=== PATIENT | male | born 1995 | race Hispanic/Latino ===

== ENCOUNTER 2023-06-05 16:05 | Inpatient (IN) | payer SELFPAY ==
[2023-06-05] MEDS ORDERED: ASPIRIN 81 MG CHEWABLE TABLET ONE (16:54)
[2023-06-05] MEDS ORDERED: NA CHLORIDE 0.9% 1,000 ML ONE ×2 (16:54→21:46)
[2023-06-05] MEDS ORDERED: LABETALOL HCL 100 MG TAB ONE (17:06)
[2023-06-05] MEDS ORDERED: DIGOXIN 0.25 MG/ML AMP ONE (17:06)
[2023-06-05] MEDS ORDERED: ENOXAPARIN 80 MG/0.8 ML SQ ONE (17:06)
[2023-06-05] MEDS ORDERED: LABETALOL 20 MG/4ML SYRINGE IV ONE ×2 (17:07→17:39)
[2023-06-05] MEDS ORDERED: MAGNESIUM SULFATE 1 gm IVPB 1 GM/100 ML BAG IV ONE (17:07)
[2023-06-05 17:09] LABS: Absolute Lymphocytes (CBC) 2.9 K/uL (0.7-4.9); Hematocrit 44.8 % (39.6-49.0); Lymphocytes % 29.8 % (15.3-44.8); MCV 92.5 fL (80-100); Platelets 225 thou/uL (152-406); RBC Red Blood Cell Count 4.84 M/uL (4.33-5.43)
--- NOTE | 2023-06-05 17:12 | EDPHYS ---
Physician Documentation [facility] Name: Garcia Marcelino Age: 27 yrs Sex: Male : 1995 Arrival Date: 06/05/2023 Time: 16:05 Bed 13 Private MD: ED Physician Dougie Valadez HPI: 06/05 17:04 This 27 yrs old Male presents to ER via Ambulatory with complaints of Chest anand Pressure, Palpitations, sent from urgent care heart attack?. 17:04 The patient or guardian reports chest pain that is located primarily in the substernal anand area, anterior chest wall, bilaterally. The pain does not radiate. Associated signs and symptoms: The patient has no apparent associated signs or symptoms. The chest pain is described as a pressure. Duration: The patient or guardian reports multiple episodes, with no pattern. Modifying factors: The symptoms are alleviated by nothing. the symptoms are aggravated by nothing. Severity of pain: At its worst the pain was mild in the emergency department the pain is unchanged. Historical: - Allergies: 16:40 No Known Allergies; aa5 - Home Meds: 16:40 Omeprazole Oral [Active]; aa5 - PMHx: 16:40 None; aa5 - PSHx: 16:40 None; aa5 - Immunization history:: Adult Immunizations unknown. - Social history:: Smoking status: Reported history of juuling and/or vaping. - Family history:: not pertinent. ROS: 17:04 Constitutional: Negative for fever, chills, and weight loss, Eyes: Negative for injury, anand pain, redness, and discharge, ENT: Negative for injury, pain, and discharge, Neck: Negative for injury, pain, and swelling, Respiratory: Negative for shortness of breath, cough, wheezing, and pleuritic chest pain, Abdomen/GI: Negative for abdominal pain, nausea, vomiting, diarrhea, and constipation, Back: Negative for injury and pain, : Negative for injury, bleeding, discharge, and swelling, MS/Extremity: Negative for injury and deformity, Skin: Negative for injury, rash, and discoloration, Neuro: Negative for headache, weakness, numbness, tingling, and seizure, Psych: Negative for depression, anxiety, suicide ideation, homicidal ideation, and hallucinations, Allergy/Immunology: Negative for hives, rash, and allergies, Endocrine: Negative for neck swelling, polydipsia, polyuria, polyphagia, and marked weight changes, Hematologic/Lymphatic: Negative for swollen nodes, abnormal bleeding, and unusual bruising, 17:04 Cardiovascular: Positive for chest pain, palpitations, Exam: 17:04 Constitutional: This is a well developed, well nourished patient who is awake, alert, anand and in no acute distress. Head/Face: Normocephalic, atraumatic. Eyes: Pupils equal round and reactive to light, extra-ocular motions intact. Lids and lashes normal. Conjunctiva and sclera are non-icteric and not injected. Cornea within normal limits. Periorbital areas with no swelling, redness, or edema. ENT: Nares patent. No nasal discharge, no septal abnormalities noted. Tympanic membranes are normal and external auditory canals are clear. Oropharynx with no redness, swelling, or masses, exudates, or evidence of obstruction, uvula midline. Mucous membranes moist. Neck: Trachea midline, no thyromegaly or masses palpated, and no cervical lymphadenopathy. Supple, full range of motion without nuchal rigidity, or vertebral point tenderness. No Meningismus. Chest/axilla: Normal chest wall appearance and motion. Nontender with no deformity. No lesions are appreciated. Respiratory: Lungs have equal breath sounds bilaterally, clear to auscultation and percussion. No rales, rhonchi or wheezes noted. No increased work of breathing, no retractions or nasal flaring. Abdomen/GI: Soft, non-tender, with normal bowel sounds. No distension or tympany. No guarding or rebound. No evidence of tenderness throughout. Back: No spinal tenderness. No costovertebral tenderness. Full range of motion. Male : Normal genitalia with no discharge or lesions. Skin: Warm, dry with normal turgor. Normal color with no rashes, no lesions, and no evidence of cellulitis. MS/ Extremity: Pulses equal, no cyanosis. Neurovascular intact. Full, normal range of motion. Neuro: Awake and alert, GCS 15, oriented to person, place, time, and situation. Cranial nerves II-XII grossly intact. Motor strength 5/5 in all extremities. Sensory grossly intact. Cerebellar exam normal. Normal gait. Psych: Awake, alert, with orientation to person, place and time. Behavior, mood, and affect are within normal limits. 17:04 Cardiovascular: Rate: tachycardic, actual rate is 155 bpm, Rhythm: irregularly irregular, Pulses: Pulses are 4+ in bilateral radial, brachial, femoral, popliteal, posterior tibial and and dorsalis pedis arteries.. Heart sounds: normal, Edema: is not appreciated, JVD: is not appreciated, 17:04 ECG was reviewed by the Attending Physician. Vital Signs: 16:38 BP 112 / 97; Pulse 90; Resp 16 S; Temp 98(TE); Pulse Ox 100% on R/A; Weight 82.1 kg aa5 (R); Height 5 ft. 11 in. (R); 16:40 Pulse 125; aa5 16:45 Pulse 170; aa5 16:59 BP 143 / 84; Pulse 155; Resp 18; Pulse Ox 96% on R/A; Pain 0/10; ld1 17:27 BP 122 / 89; Pulse 135; Resp 26; Pulse Ox 97% on R/A; ld1 17:43 BP 114 / 95; Pulse 132; Resp 20; Pulse Ox 97% on R/A; ld1 18:07 BP 101 / 88; Pulse 130; Resp 18; Pulse Ox 96% on R/A; ld1 18:35 BP 123 / 82; Pulse 97; Resp 20; Pulse Ox 99% on R/A; ld1 06/06 17:21 BP 119 / 84; Pulse 82; Resp 15; Pulse Ox 96% on R/A; me1 06/05 16:38 Body Mass Index 25.24 (82.10 kg, 180.34 cm) aa5 16:59 Pain Scale: Adult ld1 06/05 16:45 HR fluctuating between 150- 170bpm at this time, MD aware. aa5 MDM: 16:12 Patient medically screened. anand 17:07 Differential diagnosis: abnormal EKG, acute pericarditis, anxiety, coronary artery anand disease chest wall pain, gastritis, mitral valve prolapse, pancreatitis, pericarditis, pulmonary embolus, stable angina, thoracic aortic disection, unstable angina. HEART Score: ECG: Non specific repolarization disturbance / LBTB / PM (1), Age: < or = 45 years (0), Risk Factors: No Risk Factors Known (0), Troponin: < or = 1 x Normal Limit (0). TERRY Risk Score: TOTAL SCORE = 0. Data reviewed: vital signs, nurses notes, EMS record, lab test result(s), EKG, radiologic studies. Consideration of Admission/Observation Patient was admitted/placed on observation. Escalation of care including admission/observation considered. I considered the following discharge prescriptions or medication management in the emergency department Medications were administered in the Emergency Department. See MAR. Test considered but Not performed: Ultrasound NO 2 D ECHO IN ED. Historians other than the Patient: Spouse/Significant Other: SIGN OTHER. Care significantly affected by the following chronic conditions: NONE, COCAINE USE. Counseling: I had a detailed discussion with the patient and/or guardian regarding the historical points, exam findings, and any diagnostic results supporting the discharge/admit diagnosis, the presence of at least one elevated blood pressure reading (>120/80) during this emergency department visit, lab results, radiology results, the need for further work-up and treatment in the hospital. 06/05 16:13 Order name: Basic Metabolic Panel; Complete Time: 18:02 anand 06/05 16:13 Order name: CBC with Diff; Complete Time: 17:32 anand 06/05 16:13 Order name: LFT's; Complete Time: 18:02 anand 06/05 16:13 Order name: Magnesium; Complete Time: 18:02 anand 06/05 16:13 Order name: NT PRO-BNP; Complete Time: 18:02 anand 06/05 16:13 Order name: PT-INR; Complete Time: 17:32 anand 06/05 16:13 Order name: Troponin HS; Complete Time: 18:02 anand 06/05 16:13 Order name: UDS; Complete Time: 19:34 anand 06/05 16:13 Order name: Lipase; Complete Time: 18:02 anand 06/05 16:47 Order name: TSH; Complete Time: 18:02 anand 06/05 18:35 Order name: CBC with Automated Diff EDMS 06/05 18:35 Order name: CBC with Automated Diff EDMS 06/05 18:35 Order name: Comprehensive Metabolic Panel EDMS 06/05 18:35 Order name: Comprehensive Metabolic Panel EDMS 06/05 18:35 Order name: Troponin High Sensitivity EDMS 06/05 18:35 Order name: Troponin High Sensitivity EDMS 06/05 18:35 Order name: Troponin High Sensitivity EDMS 06/05 18:35 Order name: Troponin High Sensitivity EDMS 06/06 05:24 Order name: Lipid Profile [facility] 06/06 05:36 Order name: LDL, Direct EDRI 06/06 05:50 Order name: Hemoglobin A1c [facility] 06/05 16:13 Order name: XRAY Chest (1 view); Complete Time: 18:02 [facility] 06/05 16:13 Order name: EKG; Complete Time: 16:13 [facility] 06/05 18:35 Order name: EKG Electrocardiogram [facility] 06/05 18:35 Order name: EKG Electrocardiogram [facility] 06/05 16:13 Order name: Cardiac monitoring; Complete Time: 16:52 [facility] 06/05 16:13 Order name: EKG - Nurse/Tech; Complete Time: 16:52 [facility] 06/05 16:13 Order name: IV Saline Lock; Complete Time: 16:52 [facility] 06/05 16:13 Order name: Labs collected and sent; Complete Time: 16:52 [facility] 06/05 16:13 Order name: O2 Per Protocol; Complete Time: 16:52 [facility] 06/05 16:13 Order name: O2 Sat Monitoring; Complete Time: 16:52 [facility] EC:04 Rate is 156 beats/min. Rhythm is irregularly irregular. QRS [place] is Normal. RI interval anand is normal. QRS interval is normal. QT interval is normal. No Q waves. T waves are Normal. No ST changes noted. Clinical impression: Atrial Fibrillation. Interpreted by me. Reviewed by me. Administered Medications: 16:59 Drug: Aspirin PO Chewable Tablet 162 mg PO once Route: PO; 1 06/06 07:00 Follow up: Response: No adverse reaction [facility] 06/05 16:59 Drug: NS 0.9% IV 500 ml IV at bolus once Route: IV; Rate: bolus; Site: right ld1 antecubital; 06/06 07:01 Follow up: Response: No adverse reaction; IV Status: Completed infusion; IV Intake: jw7 500ml 06/05 16:59 Drug: NS 0.9% IV 500 ml IV at bolus once Route: IV; Rate: bolus; Site: right ld1 antecubital; 06/06 07:01 Follow up: Response: No adverse reaction; IV Status: Completed infusion; IV Intake: jw7 500ml 06/05 17:10 Drug: Enoxaparin Sub-Q 1 mg/kg Sub-Q once Route: Sub-Q; Site: abdomen; 06/06 07:01 Follow up: Response: No adverse reaction [facility] 06/05 17:10 Drug: Labetalol PO 100 mg PO once Route: PO; 06/06 07:02 Follow up: Response: No adverse reaction 06/05 17:20 Drug: Digoxin IVP 0.5 mg IVP once Route: IVP; Site: right antecubital; 06/06 07:02 Follow up: Response: No adverse reaction [facility] 06/05 17:24 Drug: Labetalol IV 10 mg IV at per protocol once Route: IV; Rate: per protocol; Site: [facility] right antecubital; 06/06 07:02 Follow up: Response: No adverse reaction; IV Status: Completed infusion; IV Intake: [id number] 06/05 17:26 Drug: Magnesium Sulfate IVPB 1 grams IVPB once over 1 hrs Route: IVPB; Infused Over: 1 ld1 hrs; Site: right antecubital; 06/06 07:02 Follow up: Response: No adverse reaction; IV Status: Completed infusion; IV Intake: [id number] 06/05 17:43 Drug: Labetalol IV 10 mg IV at per protocol once Route: IV; Rate: per protocol; Site: [facility] right antecubital; 06/06 07:03 Follow up: Response: No adverse reaction; Marked relief of symptoms; IV Status: jw7 Completed infusion; IV Intake: 10ml 06/05 18:07 Drug: Labetalol IV 10 mg IV at per protocol once Route: IV; Rate: per protocol; Site: [facility] left antecubital; 06/06 07:03 Follow up: Response: No adverse reaction; Marked relief of symptoms; IV Status: jw7 Completed infusion; IV Intake: 10ml Disposition Summary: 06/05/23 17:11 Hospitalization Ordered Notes: Hospitalization Status: Observation anand Provider: Alexandria Gold cha Condition: Fair anand Problem: new anand Symptoms: have improved anand Bed/Room Type: Standard anand Location: [facility] ER HOLD(06/06/23 13:55) em1 Room Assignment: ERHOLD-(06/06/23 13:55) em1 Diagnosis - Persistent atrial fibrillation - WITH RVR, NEW ONSET anand - Cocaine abuse anand Forms: - Medication Reconciliation Form anand - SBAR form anand - Leadership Thank You Letter anand Signatures: Dispatcher [employer] Dougie Chun MD MD cha Trace, Gumaro em1 Val Hughes, RN RN aa5 Christiane Painting, JESICA RN Sonali Sneed RN RN ld1 Lupis Joseph rv1 Alicia Cho RN jw7 Corrections: (The following items were deleted from the chart) 06/05 16:41 16:40 Home Meds: None; aa5 aa5 19:20 17:11 Telemetry/MedSurg (observation) anand rv1 19:20 17:11 anand rv1 20:53 19:20 Telemetry/MedSurg (observation) rv1 cg 20:53 19:20 rv1 cg 06/06 12:17 06/05 20:53 [facility] ER HOLD cg em1 06/06 12:17 06/05 20:53 ERHOLD- cg em1 06/06 13:55 12:17 Telemetry/MedSurg (Inpatient) em1 em1 13:55 12:17 219 em1 em1
--- NOTE | 2023-06-05 17:12 | ER ---
Nurse's Notes [facility] Name: Garcia Marcelino Age: 27 yrs Sex: Male : 1995 Arrival Date: 06/05/2023 Time: 16:05 Bed 13 Private MD: Diagnosis: Persistent atrial fibrillation-WITH RVR, NEW ONSET;Cocaine abuse Presentation: 06/05 16:38 Chief complaint: Patient states: "I went to urgent care and they sent me here because aa5 my heart rate was 165". Pt states "I just felt palpitations and I did drink a lot last night". Coronavirus screen: At this time, the client does not indicate any symptoms associated with coronavirus-19. Ebola Screen: Patient denies travel to an Ebola-affected area in the 21 days before illness onset. Initial Sepsis Screen: Does the patient meet any 2 criteria? No. Patient's initial sepsis screen is negative. Does the patient have a suspected source of infection? No. Patient's initial sepsis screen is negative. Risk Assessment: Do you want to hurt yourself or someone else? Patient reports no desire to harm self or others. Onset of symptoms was June 05, 2023. 16:38 Method Of Arrival: Ambulatory aa5 16:38 Acuity: ANGELA 2 aa5 Historical: - Allergies: 16:40 No Known Allergies; aa5 - Home Meds: 16:40 Omeprazole Oral [Active]; aa5 - PMHx: 16:40 None; aa5 - PSHx: 16:40 None; aa5 - Immunization history:: Adult Immunizations unknown. - Social history:: Smoking status: Reported history of juuling and/or vaping. - Family history:: not pertinent. Screenin:59 [facility] ED Fall Risk Assessment (Adult) History of falling in the last 3 months, ld1 including since admission No falls in past 3 months (0 pts). Abuse screen: Denies threats or abuse. Denies injuries from another. Nutritional screening: No deficits noted. Tuberculosis screening: No symptoms or risk factors identified. Assessment: 16:59 General: Appears in no apparent distress. comfortable, Behavior is cooperative, ld1 anxious. Pain: Denies pain. Neuro: Level of Consciousness is awake, alert, obeys commands, Oriented to person, place, time, situation. Cardiovascular: Capillary refill < 3 seconds Patient's skin is warm and dry. Rhythm is atrial fibrillation with rapid ventricular response. Respiratory: Airway is patent Respiratory effort is even, unlabored. GI: Abdomen is flat, non-distended. : No signs and/or symptoms were reported regarding the genitourinary system. EENT: No signs and/or symptoms were reported regarding the EENT system. Derm: No signs and/or symptoms reported regarding the dermatologic system. Musculoskeletal: No signs and/or symptoms reported regarding the musculoskeletal system. 17:00 Reassessment: Pt reports use of cocaine two nights ago and drinking two energy drinks. ld1 Denies chest pain. Chest "feels like heart is beating fast.". Vital Signs: 16:38 BP 112 / 97; Pulse 90; Resp 16 S; Temp 98(TE); Pulse Ox 100% on R/A; Weight 82.1 kg aa5 (R); Height 5 ft. 11 in. (R); 16:40 Pulse 125; aa5 16:45 Pulse 170; aa5 16:59 BP 143 / 84; Pulse 155; Resp 18; Pulse Ox 96% on R/A; Pain 0/10; ld1 17:27 BP 122 / 89; Pulse 135; Resp 26; Pulse Ox 97% on R/A; ld1 17:43 BP 114 / 95; Pulse 132; Resp 20; Pulse Ox 97% on R/A; ld1 18:07 BP 101 / 88; Pulse 130; Resp 18; Pulse Ox 96% on R/A; ld1 18:35 BP 123 / 82; Pulse 97; Resp 20; Pulse Ox 99% on R/A; ld1 06/06 17:21 BP 119 / 84; Pulse 82; Resp 15; Pulse Ox 96% on R/A; me1 06/05 16:38 Body Mass Index 25.24 (82.10 kg, 180.34 cm) aa5 16:59 Pain Scale: Adult ld1 06/05 16:45 HR fluctuating between 150- 170bpm at this time, aware. aa5 ED Course: 16:07 Patient arrived in ED. im 16:12 Dougie Valadez MD is Attending Physician. anand 16:36 XRAY Chest (1 view) In Process Unspecified. EDMS 16:37 Arm band placed on. aa5 16:39 Triage completed. aa5 16:46 Patient placed in an exam room, on a stretcher. aa5 16:52 Sonali Sneed RN is Primary Nurse. ld1 16:59 Patient has correct armband on for positive identification. Placed in gown. Bed in low ld1 position. Call light in reach. Side rails up X2. property assessment monitor on. Pulse ox on. NIBP on. Door closed. Noise minimized. Warm blanket given. 16:59 Inserted saline lock: 18 gauge in right antecubital area, using aseptic technique. ld1 Blood collected. 16:59 No provider procedures requiring assistance completed. Patient maintains SpO2 ld1 saturation greater than 95% on room air. 17:10 Alexandria Gold MD is Hospitalizing Provider. [facility] 06/06 01:49 Provided Education on: need for admit. 01:49 Patient admitted, IV remains in place. 17:22 IV discontinued, intact, bleeding controlled, No redness/swelling at site. Pressure me1 dressing applied. Administered Medications: 06/05 16:59 Drug: Aspirin PO Chewable Tablet 162 mg PO once Route: PO; 06/06 07:00 Follow up: Response: No adverse reaction [facility] 06/05 16:59 Drug: NS 0.9% IV 500 ml IV at bolus once Route: IV; Rate: bolus; Site: right ld1 antecubital; 06/06 07:01 Follow up: Response: No adverse reaction; IV Status: Completed infusion; IV Intake: jw7 500ml 06/05 16:59 Drug: NS 0.9% IV 500 ml IV at bolus once Route: IV; Rate: bolus; Site: right ld1 antecubital; 06/06 07:01 Follow up: Response: No adverse reaction; IV Status: Completed infusion; IV Intake: jw7 500ml 06/05 17:10 Drug: Enoxaparin Sub-Q 1 mg/kg Sub-Q once Route: Sub-Q; Site: abdomen; 06/06 07:01 Follow up: Response: No adverse reaction [facility] 06/05 17:10 Drug: Labetalol PO 100 mg PO once Route: PO; 06/06 07:02 Follow up: Response: No adverse reaction [facility] 06/05 17:20 Drug: Digoxin IVP 0.5 mg IVP once Route: IVP; Site: right antecubital; 1 06/06 07:02 Follow up: Response: No adverse reaction jw7 06/05 17:24 Drug: Labetalol IV 10 mg IV at per protocol once Route: IV; Rate: per protocol; [facility]; 06/06 07:02 Follow up: Response: No adverse reaction; IV Status: Completed infusion; IV Intake: [id number] 06/05 17:26 Drug: Magnesium Sulfate IVPB 1 grams IVPB once over 1 hrs Route: IVPB; Infused Over: 1 ld1 hrs; [facility]; 06/06 07:02 Follow up: Response: No adverse reaction; IV Status: Completed infusion; IV Intake: [id number] 06/05 17:43 Drug: Labetalol IV 10 mg IV at per protocol once Route: IV; Rate: per protocol; Site: [facility] right [facility]; 06/06 07:03 Follow up: Response: No adverse reaction; Marked relief of symptoms; IV Status: jw7 Completed infusion; IV Intake: 10ml 06/05 18:07 Drug: Labetalol IV 10 mg IV at per protocol once Route: IV; Rate: per protocol; Site: [facility] left [facility]; 06/06 07:03 Follow up: Response: No adverse reaction; Marked relief of symptoms; IV Status: jw7 Completed infusion; IV Intake: 10ml Medication: 01:50 VIS not applicable for this client. jw7 Intake: 07:01 IV: 500ml; Total: 500ml. jw7 07:01 IV: 500ml; Total: 1000ml. jw7 07:02 IV: 10ml; Total: 1010ml. jw7 07:02 IV: 50ml; Total: 1060ml. jw7 07:03 IV: 10ml; Total: 1070ml. jw7 07:03 IV: 10ml; Total: 1080ml. jw7 Outcome: 06/05 17:11 Decision to Hospitalize by Provider. [facility] 06/06 01:49 Admitted to ER Hold. Please see [facility] for further documentation. jw7 Condition: stable Instructed on the need for admit, Demonstrated understanding of instructions, 17:22 Patient left the ED. me1 Signatures: Dispatcher [employer] EDDougie Benavides MD MD cha Calderon, Audri, RN RN aa5 Sonali Sneed RN RN ld1 Alicia Cho, JESICA RN jw7 Mady Shepherd Michelle RN RN me1 Corrections: (The following items were deleted from the chart) 06/05 16:40 16:38 BP 112 / 97; Pulse 90bpm; Resp 16bpm; Spontaneous; Pulse Ox 100% RA; aa5 aa5 16:41 16:40 Home Meds: None; aa5 aa5 16:50 16:38 Acuity: ANGELA 3 aa5 aa5
[2023-06-05 17:17] LABS: Protime INR 1.22
[2023-06-05 17:36] LABS: Albumin 4.4 g/dL (3.4-5.0); Bilirubin Direct 0.1 mg/dL (0-0.2); Bilirubin Indirect, Calculated 0.4 mg/dL (0.2-0.8); Bilirubin Total 0.5 mg/dL (0.2-1.0); Magnesium 1.8 mg/dL (1.6-2.4); Potassium 3.8 mEq/L (3.5-5.1); Protein, Total 8.4 g/dL (6.4-8.2); Troponin High Sensitivity 12.3 pg/mL (<58.9)
--- NOTE | 2023-06-05 17:44 | RAD REPORT ---
EXAM DESCRIPTION: Steve Single View06/05/2023 4:34 pm CLINICAL HISTORY: Chest pain COMPARISON: none FINDINGS: The lungs appear clear of acute infiltrate. The heart is normal size IMPRESSION: No acute abnormalities displayed
--- NOTE | 2023-06-05 18:29 | P.HP ---
Certification for Inpatient Patient admitted to: Inpatient With expected LOS: >2 Midnights Practitioner: I am a practitioner with admitting privileges, knowledge of patient current condition, hospital course, and medical plan of care. Services: Services provided to patient in accordance with Admission requirements found in Title 42 Section 412.3 of the Code of Federal Regulations Patient History Date of Service: 06/05/23 Reason for admission: Afib W RVR History of Present Illness: 27 yrs old Male with no significant past medical history brought to ER with chest discomfort and palpitation. Patient was having substernal chest pain associated with palpitation started 3 to 4 days ago and has been progressively worsening associated with mild shortness of breath pain is located anterior chest wall on both sides with no radiation. Not associated with diaphoresis. No nausea vomiting or diarrhea. No fever or chills. No sick contacts. Patient admits that he has been drinking heavily daily for the last 3 to 4 days and has used cocaine 1 time 2 days ago and has been eating spicy foods and energy drinks. No previous history of atrial fibrillation. At the time of interview pain is better and resolved Patient was assessed in the ER and was admitted for further management of chest pain and palpitations to rule out atrial fibrillation w RVR Home medications list reviewed: Yes - Past Medical/Surgical History Past Medical History: Reviewed- Non-Contributory Past Surgical History: Reviewed- Non-Contributory - Family History Family History: Reviewed- Non-Contributory - Social History Smoking Status: Current every day smoker Review of Systems 10-point ROS is otherwise unremarkable General: Unremarkable Eyes: Unremarkable ENT: Unremarkable Respiratory: Shortness of Breath, SOB with Excertion Cardiovascular: Chest Pain, Palpitations Gastrointestinal: Unremarkable Genitourinary: Unremarkable Musculoskeletal: Unremarkable Integumentary: Unremarkable Lymphatics: Unremarkable Physical Examination - Vital Signs Temperature: 98.6 F Blood Pressure: 128/72 Pulse: 96 Respirations: 18 Pulse Ox (%): 98 - Physical Exam General: Alert, In no apparent distress, Oriented x3 HEENT: Atraumatic, Normocephalic Neck: Supple, 2+ carotid pulse no bruit Respiratory: Clear to auscultation bilaterally, Normal air movement Cardiovascular: Normal pulses, Regular rate/rhythm, Normal S1 S2 Capillary refill: <2 Seconds Gastrointestinal: Soft and benign, W/out hepatosplenomegaly Musculoskeletal: No clubbing, No swelling Integumentary: No rashes, No breakdown Neurological: Normal speech, Normal strength at 5/5 x4 extr, Normal tone, Sensation intact, Cranial nerves 3-12 intact, Normal reflexes 2+, Normal affect Lymphatics: No axilla or inguinal lymphadenopathy - Studies Laboratory Data (last 24 hrs) 06/05/23 06/05/23 06/05/23 16:56 16:56 16:56 WBC 9.70 Hgb 15.7 Hct 44.8 Plt Count 225 PT 13.3 H INR 1.22 Sodium 137 Potassium 3.8 BUN 16 Creatinine 1.18 Glucose 90 Magnesium 1.8 Total Bilirubin 0.5 AST 22 ALT 58 Alkaline Phosphatase 84 Lipase 36 Assessment and Plan - Problems (Diagnosis) (1) Atrial fibrillation with RVR Current Visit: Yes Status: Acute Plan: Patient initially presented with A-fib with RVR Had labetolol in the ER Right now converted to sinus rhythm Monitor closely under telemetry We will get an echocardiogram Continue beta-cosme We will start on aspirin Cardiology consult if patient develop A-fib again (2) Chest pain Current Visit: Yes Status: Acute Plan: Chest pain rule out ACS Trend cardiac enzymes Aspirin and statin Will get an A1c and lipid panel Will get an echocardiogram At the time of interview patient is chest pain-free (3) Substance abuse Current Visit: Yes Status: Acute Plan: Patient admits he has been drinking alcohol heavily in the last 3 to 4 days Advised alcohol cessation Offered measures Patient also admitting to drinking energy drinks and using cocaine Advised to refrain from those - Advance Directives Does patient have a Living Will: No Does patient have a Durable POA for Healthcare: No - Code Status/Comfort Care Code Status: Full Code Time Spent Managing Pts Care (In Minutes): 48
[2023-06-05] MEDS ORDERED: ONDANSETRON 4 MG/2 ML VIAL IV PRN (18:30)
[2023-06-05] MEDS ORDERED: ACETAMINOPHEN 500 MG TAB PO PRN (18:30)
[2023-06-05] MEDS ORDERED: MORPHINE 2 MG/ML SYR IV PRN (18:30)
[2023-06-05 18:56] LABS: Barbiturates NEGATIVE (NEGATIVE); Benzodiazepines NEGATIVE (NEGATIVE); Cocaine NEGATIVE (NEGATIVE); METHAMPHETAM NEGATIVE (NEGATIVE); Methadone NEGATIVE (NEGATIVE); Opiates NEGATIVE (NEGATIVE); Phencyclidine NEGATIVE (NEGATIVE); THC Cannibis NEGATIVE (NEGATIVE)
[2023-06-05] MEDS ORDERED: NA CHLORIDE 0.9% 1,000 ML IV SCH (19:00)
[2023-06-05] MEDS ORDERED: ATORVASTATIN 40 MG TAB PO SCH (21:00)
[2023-06-05] MEDS ORDERED: METOPROLOL TAR 25 MG TAB ONE (21:46)
[2023-06-05] MEDS ORDERED: ATORVASTATIN 40 MG TAB ONE (21:46)
[2023-06-05] MEDS: METOPROLOL TAR 25 MG TAB PO SCH (22:00)
[2023-06-06 01:46] VITALS: BMI 25.1
[2023-06-06 04:43] LABS: Absolute Lymphocytes (CBC) 2.8 K/uL (0.7-4.9); Hematocrit 39.5 % (39.6-49.0); Lymphocytes % 38.3 % (15.3-44.8); MCV 92.6 fL (80-100); MPV 10.6 fL (7.6-11.3); Platelets 182 thou/uL (152-406); RBC Red Blood Cell Count 4.27 M/uL (4.33-5.43)
[2023-06-06 05:20] LABS: ALT/SGPT 59 U/L (16-61); Albumin 3.7 g/dL (3.4-5.0); Alkaline Phosphatase 80 U/L (45-117); BUN Blood Urea Nitrogen 19 mg/dL (7-18); Bicarbonate 25 mEq/L (21-32); Bilirubin Total 0.6 mg/dL (0.2-1.0); Glomerular Filtration Rate 84 ml/min (=/>90); Glucose Level 113 mg/dL (74-106); HDL Cholesterol 27 mg/dL (40-60); Protein, Total 7.3 g/dL (6.4-8.2); Sodium Level 134 mEq/L (136-145)
[2023-06-06 05:23] LABS: AST/SGOT 24 U/L (15-37); Potassium 3.4 mEq/L (3.5-5.1)
[2023-06-06 05:36] LABS: LDL, Direct 86 mg/dL (100-129)
[2023-06-06] MEDS: METOPROLOL TAR 25 MG TAB PO SCH (06:00)
[2023-06-06] MEDS: POTASSIUM CL SA 10 MEQ TAB PO SCH ×2 (08:00→12:00)
[2023-06-06] MEDS ORDERED: POTASSIUM CL SA 10 MEQ TAB PO ONE ×2 (08:10→16:15)
[2023-06-06] MEDS ORDERED: METOPROLOL TAR 25 MG TAB ONE (08:10)
[2023-06-06] MEDS ORDERED: ASPIRIN 81 MG CHEWABLE TABLET ONE (08:10)
[2023-06-06] MEDS ORDERED: ASPIRIN EC 81 MG TAB PO SCH (09:00)
--- NOTE | 2023-06-06 14:16 | P.DS ---
Admission Date: 06/05/23 Discharge Date: 06/06/23 Disposition: ROUTINE DISCHARGE Discharge Condition: GOOD Reason for Admission: Afib W RVR Brief History of Present Illness: 27 yrs old Male with no significant past medical history brought to ER with chest discomfort and palpitation. Patient was having substernal chest pain associated with palpitation started 3 to 4 days ago and has been progressively worsening associated with mild shortness of breath pain is located anterior chest wall on both sides with no radiation. Not associated with diaphoresis. No nausea vomiting or diarrhea. No fever or chills. No sick contacts. Patient admits that he has been drinking heavily daily for the last 3 to 4 days and has used cocaine 1 time 2 days ago and has been eating spicy foods and energy drinks. No previous history of atrial fibrillation. At the time of interview pain is better and resolved Patient was assessed in the ER and was admitted for further management of chest pain and palpitations to rule out atrial fibrillation w RVR Hospital Course: Pt presented in the ER with A. fib with RVR. He reported drinking alcohol and using cocaine with energy drink 2 days before this admission. We admitted him for A. fib with RVR. Heart rate improved with metoprolol that was started in the ER. We later switched him to coreg 6.25mg po BID. Lipid panel showed elevated triglyceride (1200) and we started fenofibrate. His symptoms resolved and pt requested to leave. We advised him to stop using cocaine and follow up with Dr. Ortega. He was in NAD prior to discharge Vital Signs/Physical Exam: Temp Pulse Resp BP Pulse Ox 98.0 F 95 H 16 117/76 98 06/06/23 07:55 06/06/23 07:55 06/06/23 07:55 06/06/23 07:55 06/06/23 07:55 Laboratory Data at Discharge: WBC 7.40 thou/uL (4.3-10.9) 06/06/23 04:05 Hgb 14.1 g/dL (13.6-17.9) D 06/06/23 04:05 Hct 39.5 % (39.6-49.0) L 06/06/23 04:05 Plt Count 182 thou/uL (152-406) 06/06/23 04:05 PT 13.3 SECONDS (9.5-12.5) H 06/05/23 16:56 INR 1.22 06/05/23 16:56 Sodium 134 mEq/L (136-145) L 06/06/23 04:05 Potassium 3.4 mEq/L (3.5-5.1) L 06/06/23 04:05 BUN 19 mg/dL (7-18) H 06/06/23 04:05 Creatinine 1.21 mg/dL (0.70-1.30) 06/06/23 04:05 Glucose 113 mg/dL (74-106) H 06/06/23 04:05 Magnesium 1.8 mg/dL (1.6-2.4) 06/05/23 16:56 Total Bilirubin 0.6 mg/dL (0.2-1.0) 06/06/23 04:05 AST 24 U/L (15-37) 06/06/23 04:05 ALT 59 U/L (16-61) 06/06/23 04:05 Alkaline Phosphatase 80 U/L (45-117) 06/06/23 04:05 Triglycerides 1286 mg/dL (<150) H 06/06/23 04:05 Cholesterol 195 mg/dL (<200) 06/06/23 04:05 LDL Cholesterol Direct 86 mg/dL (100-129) L 06/06/23 04:05 HDL Cholesterol 27 mg/dL (40-60) L 06/06/23 04:05 Cholesterol/HDL Ratio 7.22 06/06/23 04:05 Lipase 36 U/L (13-75) 06/05/23 16:56 Home Medications: Aspirin [Aspirin EC] 81 mg PO DAILY 90 Days #90 tab 06/06/23 Fenofibrate [Tricor*] 160 mg PO DAILY 90 Days #90 tab 06/06/23 carvediloL [Coreg*] 6.25 mg PO BIDWM 30 Days #60 tab 06/06/23 New Medications: Aspirin [Aspirin EC] 81 mg PO DAILY 90 Days #90 tab carvediloL [Coreg*] 6.25 mg PO BIDWM 30 Days #60 tab Fenofibrate [Tricor*] 160 mg PO DAILY 90 Days #90 tab Physician Discharge Instructions: Continue ad sue activity. Take Coreg 6.25mg po BID, aspirin and fenofibrate as prescribed. Lois loaiza with PCP and chocolate temperer, Dr. Ortega. within 1 week. Stop using cocaine. Diet: AHA Activity: Ad sue Followup: Jarocho Ortega MD [ACTIVE - CAN ADMIT] -
[2023-06-06 16:32] VITALS: TEMP 98.6
[2023-06-06] MEDS ORDERED: carvediloL 6.25 MG TAB PO SCH (17:00)
[2023-06-06 18:57] VITALS: BP 119/84; O2SAT 96
--- NOTE | 2023-06-07 07:19 | ECHO ---
HEIGHT: 5 ft 11 in WEIGHT: 180 lb 0 oz DATE OF STUDY: 06/06/[address]: Brandon Somers DO 2-DIMENSIONAL: YES M.MODE: YES DOPPLER: YES COLOR FLOW: YES TDS: NO PORTABLE: YES DEFINITY: NO BUBBLE STUDY: NO DIAGNOSIS: ATRIAL FIBRILLATION, CHEST PAIN CARDIAC HISTORY: CATHERIZATION: SURGERY: PROSTHETIC VALVE: PACEMAKER: MEASUREMENTS (cm) DIASTOLIC (NORMALS) SYSTOLIC (NORMALS) IVSd 1.1 (0.6-1.2) LA Diam 3.3 (1.9-4.0) LVEF 50% LVIDd 4.3 (3.5-5.7) LVIDs 3.3 (2.0-3.5) %FS 25% LVPWd 0.9 (0.6-1.2) Ao Diam 3.0 (2.0-3.7) 2 DIMENSIONAL ASSESSMENT: RIGHT ATRIUM: NORMAL LEFT ATRIUM: NORMAL RIGHT VENTRICLE: NORMAL LEFT VENTRICLE: NORMAL TRICUSPID VALVE: NORMAL MITRAL VALVE: NORMAL PULMONIC VALVE: NORMAL AORTIC VALVE: NORMAL PERICARDIAL EFFUSION: NONE AORTIC ROOT: NORMAL LEFT VENTRICULAR WALL MOTION: NORMAL DOPPLER/COLOR FLOW: SEE BELOW. COMMENTS: 1. LOW NORMAL LEFT VENTRICULAR EJECTION FRACTION IS 50%. 2. NORMAL WALL MOTION. TECHNOLOGIST: Melissa RINALDI
[2023-06-07] MEDS ORDERED: FENOFIBRATE 160 MG TAB PO SCH (09:00)
--- NOTE | 2023-06-09 13:52 | EKG ---
Test Date: 2023-06-05 Test Time: 16:45:45 Project Development Director: SONIA MEASUREMENT RESULTS: Intervals: Rate: 156 ME: QRSD: 80 QT: 286 QTc: 460 [place]: P: ME: QRS: 54 T: 44 INTERPRETIVE STATEMENTS: Atrial fibrillation Abnormal ECG No previous ECG available for comparison Electronically Signed On 06-09-23 13:43:28 WATER REGISTRAR by Jarocho Ortega
== END 2023-06-06 17:20 | disposition home or self-care (01) | DRG 310 ==
LOC: ER 16:05 → ERHOLD 18:39
PROVIDERS: ADMIT Family Medicine; ATTEND Hospitalist
DX: I48.91 Unspecified atrial fibrillation (principal); F14.10 Cocaine abuse, uncomplicated; F17.210 Nicotine dependence, cigarettes, uncomplicated
CPT/HCPCS: 36415; 71045; 80048; 80053; 80061; 80076; 80307; 83036; 83690; 83735; 83880; 84443; 84484; 85025; 85610; 93005; 93306; 96372; 99285; J1160; J3475; J7030